=== PATIENT | female | born 1975 | race Caucasian/White ===

== ENCOUNTER 2025-07-16 13:03 | Emergency (ER) | payer OTHER ==
[~2025-07-16] VITALS: Ht 162.6 cm; Wt 82.0 kg
[2025-07-16 13:07] VITALS: BP 146/103; PULSE 92; RESP 20; TEMP 36.8; O2SAT 98
== END 2025-07-16 16:27 | disposition left against medical advice (07) ==
LOC: ER 13:03
DX: R51.9 Headache, unspecified (principal); R42 Dizziness and giddiness; I10 Essential (primary) hypertension; E05.90 Thyrotoxicosis, unspecified without thyrotoxic crisis or storm
CPT/HCPCS: 99281